=== PATIENT | female | born 1965 | race Caucasian/White ===

== ENCOUNTER → 2023-01-20 10:46 | Outpatient (BNVA) | payer BC, SELFPAY | PROVIDERS: PCP Nurse Practitioner Family; Visit Provider Nurse Practitioner Family | DX: Z13.89 Encounter for screening for other disorder (principal) ==

== ENCOUNTER 2023-03-19 09:19 | Outpatient (REF) | payer OTHER, SELFPAY ==
--- NOTE | 2023-03-19 09:30 | EMG_ITS ---
Please see scanned EMG / Nerve Conduction Report. MTDD
== END 2023-03-19 09:20 | disposition home or self-care (01) ==
LOC: HO.NEURO 09:19
PROVIDERS: PCP Nurse Practitioner Family; Visit Provider Nurse Practitioner Family
DX: R20.0 Anesthesia of skin (principal); R20.2 Paresthesia of skin
CPT/HCPCS: 95885; 95913

== ENCOUNTER 2024-07-17 13:48 | Emergency (ER) | payer OTHER, SELFPAY ==
--- NOTE | ~2024-07-17 | XR_ITS ---
EXAMINATION: CHEST 2 VIEWS CLINICAL INFORMATION: chest pain. COMPARISON: No recent pertinent prior studies are available for comparison. TECHNIQUE: PA and lateral views of the chest obtained. FINDINGS: The lungs are well expanded. No focal infiltrate, effusion, edema, or pneumothorax. Cardiac and mediastinal silhouettes are within normal limits for technique. No acute bony abnormality seen with mild degenerative changes in the spine XR/XR chest 2V IMPRESSION: No evidence of acute disease. Electronically signed by: Tomasz Stern MD 07/17/2024 04:28 PM EDT
--- NOTE | 2024-07-17 13:51 | ECG_ITS ---
Test Reason : cp Blood Pressure : / mmHG Vent. Rate : 091 BPM Atrial Rate : 091 BPM P-R Int : 140 ms QRS Dur : 078 ms QT Int : 342 ms P-R-T Axes : 042 003 013 degrees QTc Int : 420 ms Normal sinus rhythm Possible Left atrial enlargement Borderline ECG No previous ECGs available Referred By: Anuja Lindsey Electronically Signed By:NANY BREWER
[2024-07-17 14:17] VITALS: BP 145/92; PULSE 83; RESP 16; TEMP 36.4; O2SAT 97; BMI 27.8
--- NOTE | 2024-07-17 14:22 | ED_ITS ---
HPI - Chest Pain General Chief Complaint: Chest Pain Stated Complaint: CP Time Seen by Provider: 07/17/24 18:32 Source: patient Mode of arrival: ambulatory Limitations: no limitations History of Present Illness ED Provider: Dr. Nikky Velazquez HPI narrative: Patient comes to the emergency room complaining of fatigue and general malaise for about 6 weeks. Patient states that she has been repeatedly tested for COVID, always negative. Patient states that occasionally she feels some palpitations in the chest with some weird sensation that is self-resolved. Patient denies any syncopal episodes, no chest pain other than a discomfort sensation that comes along with the palpitations Related Data Home Medications ?Medication ?Instructions ?Recorded ?Confirmed betamethasone dipropionate 0.05 % 1 appl topical BID PRN 12/24/22 topical cream cholecalciferol (vitamin D3) 25 25 mcg PO DAILY 12/24/22 mcg (1,000 unit) capsule meloxicam 15 mg tablet 15 mg PO DAILY 12/24/22 thyroid (pork) 60 mg tablet 60 mg PO DAILY 12/24/22 Allergies Allergy/AdvReac Type Severity Reaction Status Date / Time Sulfa Allergy Unknown rash Uncoded 07/17/24 14:21 Review of Systems 2 Review of Systems: Constitutional : No Weight loss, No Fever, No Chills, No Night Sweats, complaining of chronic fatigue and generalized malaise for 6 weeks ENT/Mouth : No Hearing loss, No Ear Pain, No Nasal Congestion, No Sinus Pain, No Hoarseness, No sore throat, No Rhinorrhea, No Swallowing Difficulty Eyes: No Eye Pain, No Swelling, No Redness, No Foreign Body, No Discharge, No Vision Changes Cardiovascular : No Chest Pain, No SOB, No Dyspnea on Exertion, No Orthopnea, No Edema, complaining of intermittent Palpitations Respiratory : No Cough, No Sputum, No Wheezing, No Smoke Exposure, No Dyspnea Gastrointestinal : No Nausea, No Vomiting, No Diarrhea, No Constipation, No abdominal Pain, No Hematochezia, No Melena Genitourinary : no irregular bleeding, No Dysuria, No Urinary Frequency, No Hematuria, No Urinary Incontinence, No Urgency, No Flank Pain, No Urinary Flow Changes, No Hesitancy Musculoskeletal : No joint pain, No Myalgias, No Joint Swelling Skin : No Skin Lesions, No rash Neuro : No Weakness, No Numbness, No Paresthesias, No Loss of Consciousness, No Dizziness, No Headache Psych : No Anxiety/Panic, No Depression, No SI/HI/AH/VH, No Social Issues, Heme/Lymph: No Bruising, No Bleeding,No Lymphadenopathy Endocrine : No Polyuria, No Polydipsia, No Temperature Intolerance [facility] Past Medical History Medical History Lyme disease Polyarthralgia Hyperthyroidism Graves disease Fibromyalgia Depression with anxiety Surgical History Hx of section Social History Social History Household Members: Spouse and Children Alcohol intake: never Patient Tobacco Use Status: Never used Tobacco Smoked in Last 30 Days: No Use of substances other than those prescribed or required for medical reasons: No Advance Directives: No Current occupational status: unemployed Physical Exam 2 Vital Signs: Vital Signs: Last Vital Signs Temp 97.6 F 07/17/24 18:13 Pulse 68 07/17/24 18:03 Resp 18 07/17/24 18:03 BP 153/104 H 07/17/24 18:03 Pulse Ox 98 07/17/24 18:03 O2 Del Method Room Air 07/17/24 14:17 BMI result Body Mass Index 27.8 Const: Other: Appearance: Alert. Oriented X3. No acute distress. Eyes: Pupils equal, round and reactive to light. ENT: Pharynx normal. Neck: Normal inspection. Neck supple. No lymph nodes noted. No crepitus CVS: Normal heart rate and rhythm. Pulses normal. Normal S1 and S2 Respiratory: No respiratory distress. Breath sounds normal. No Wheezing. No rales Abdomen: Soft and nontender. No rigidity. No distention. Skin: Skin warm and dry. Normal skin color. Normal skin turgor. Extremities: No lower extremity edema. No Lacerations. No Rash Neuro: Oriented X 3. No motor deficit. No sensory deficit. Moving all extremities. No slurred speech. CN 2 through 12 grossly intact Psych: calm, cooperative, normal affect Course Course Course Narrative: RME performed by Anuja Lindsey PA-C. Patient is a 59 year old assigned female at presenting to the emergency department with feeling generally unwell. Patient states over the last 6 weeks she has felt generally unwell with fatigue and chest pain. Detailed physical exam and review of systems are deferred to the wood machine carver. EKG, labs, imaging, and swabs ordered. Patient placed back in the waiting room pending room availability and results. Medical Decision Making Medical Decision Making [facility] Narrative: My interpretation of EKG: Normal sinus rhythm, heart rate 91, no ST segment depression or elevation, no T-wave inversion, QTC 420 -as patient has been in the monitor, it was noted that patient has clusters of PVCs -my interpretation of labs: Normal hematology and chemistry, negative troponin, urinalysis negative. COVID negative -my interpretation of chest x-ray, no obvious abnormality. -patient has had generalized malaise for several weeks. -patient does have history of Lyme disease. I discussed with the patient that it is worse to test her for tick-borne diseases again. Patient agrees with plan. -also, it was noted on the patient's monitor that she has clusters of PVCs. I discussed the patient with Dr. Vazquez. Patient can be discharged and will follow up with him in his office for a Holter monitor evaluation -also, a TSH with free T4 has been added to patient's labs. Differential Diagnosis Differential Diagnoses: The differential diagnosis associated with the presentation includes (Depression, hyper/hypothyroid, tick-borne diseases, viral illness) Admission/Observation Consideration of admission/observation: Escalation of care including admission/observation considered (Given patient's symptoms, EKG findings, observation considered) Consult Healthcare Provider Management of the patient was discussed with: Salesperson [employer] Lab Data [facility] Lab Attestation statement: I reviewed the patient's lab results. 07/17/24 14:43 07/17/24 14:43 Labs: Lab Results 07/17/24 Range/Units 14:43 WBC 7.3 (4.8-10.8) X10*3/uL RBC 4.90 (4.20-5.50) X10*6/uL Hgb 14.3 (12.0-16.0) g/dl Hct 41.5 (37.0-47.0) % MCV 84.7 (80.0-98.0) fL MCH 29.2 (27.0-33.0) pg MCHC 34.5 (31.0-35.0) g/dl RDW 13.3 (11.0-16.0) % Plt Count 299 (160-400) X10*3/uL MPV 9.1 L (9.4-12.3) fL Immature Gran % (Auto) 0.4 (0.0-0.4) % Neut % (Auto) 56.7 (45-73) % Lymph % (Auto) 32.1 (20-40) % [place] % (Auto) 7.5 (2-11) % Eos % (Auto) 2.5 (0-4) % Baso % (Auto) 0.8 (0-2) % Lymph # (Auto) 2.4 (1.2-4.9) X10*3/uL [place] # (Auto) 0.6 (0.1-1.2) X10*3/uL Eos # (Auto) 0.2 (0.0-0.4) X10*3/uL Baso # (Auto) 0.1 (0.0-0.2) X10*3/uL Abs Immat Gran (auto) 0.03 (0.00-0.03) X10*3/uL Absolute Neuts (auto) 4.1 (2.0-8.3) x10*3/uL Absolute Nucleated RBC 0.000 (0.0-0.012) X10*3/uL Nucleated RBC % (auto) 0.0 (0.0-0.2) /100WBC Sodium 141 (135-145) mmol/L Potassium 4.2 (3.3-5.1) mmol/L Chloride 107 (96-108) mmol/L Carbon Dioxide 25 (22-29) mmol/L Anion Gap 13 (12-20) BUN 12 (9-16) mg/dL Creatinine 0.93 (0.5-1.4) mg/dL Estim Creat Clear Calc 80.3 Estimated GFR > 60 Random Glucose 121 H (60-115) mg/dL Calcium 9.8 (8.4-10.2) mg/dL Magnesium 2.0 (1.6-2.6) mg/dL Total Bilirubin 0.4 (0.0-1.0) mg/dL AST 14 (5-31) U/L ALT 8 (0-31) U/L Alkaline Phosphatase 72 (39-117) U/L Troponin I High Sens < 2.7 (<3.5-17.0) ng/L Total Protein 7.7 (6.5-8.0) g/dL Albumin 4.2 (3.5-5.0) g/dL Urine Color Yellow Urine Appearance Clear Urine pH 6.5 (5.0-9.0) Ur Specific [place]y 1.015 (1.005-1.025) Urine Protein Negative (Neg-Trace) mg/dL Urine Glucose (UA) Negative (Negative) mg/dL Urine Ketones Negative (Negative) mg/dL Urine Blood Negative (Negative) Urine Nitrite Negative (Negative) Ur Leukocyte Esterase Negative (Negative) Influenza Type A (PCR) NEGATIVE (Negative) Influenza Type B (PCR) NEGATIVE (Negative) RSV RNA Qual (PCR) NEGATIVE (Negative) SARS-CoV-2 RNA (RT-PCR) NEGATIVE (Negative) Independent Interpretation I performed an independent interpretation of an: EKG and Plain X-Ray Radiology Impression Discussion of test interpretation with radiology: I have reviewed the radiologist's reading. Radiologist Impression: The lungs are well expanded. No focal infiltrate, effusion, edema, or pneumothorax. Cardiac and mediastinal silhouettes are within normal limits for technique. No acute bony abnormality seen with mild degenerative changes in the spine XR/XR chest 2V IMPRESSION: No evidence of acute disease. Critical Care Time Critical Care Time Critical Care Time: Yes Total Critical Care Time: 40 Attestation: I have personally provided critical care time. Time includes review of lab data, radiology results, discussion with consultants, and monitoring for potential decompensation. Intervention performed as documented. Discharge Plan Discharge Clinical Impression: Malaise and fatigue, Symptomatic PVCs Patient Disposition: Home, Self-Care Instructions: Fatigue (ED), Heart Palpitations (ED) Additional Instructions: Please follow-up with your primary care physician tomorrow. If you have any worsening or new symptoms, please return to the emergency room or call 911 Prescriptions: No Action betamethasone dipropionate 0.05 % cream 1 appl topical BID PRN cholecalciferol (vitamin D3) 25 mcg (1,000 unit) capsule 25 mcg PO DAILY thyroid (pork) 60 mg tablet 60 mg PO DAILY meloxicam 15 mg tablet 15 mg PO DAILY Referrals: Anthony Vazquez MD [Physician] - 07/19/24 Print Language: Maltese
[2024-07-17 14:48] LABS: MANUAL DIFF FLAG NO
[2024-07-17 14:50] LABS: Appearance Urine Clear; Color Urine Yellow; Glucose Urine UA Negative (Negative); Leukocyte Esterase Urine Negative (Negative); Nitrite Urine Negative (Negative); PH 6.5 (5.0-9.0); Specific Gravity - Urine 1.015 (1.005-1.025); Urine Blood Negative (Negative); Urine Ketones Negative (Negative); Urine Protein Negative (Neg-Trace)
[2024-07-17 15:00] LABS: Basophils Absolute Auto 0.1 X10*3/uL (0.0-0.2); Basophils Percent Auto 0.8 % (0-2); Eosinophils Absolute Auto 0.2 X10*3/uL (0.0-0.4); Eosinophils Percent Auto 2.5 % (0-4); Hematocrit 41.5 % (37.0-47.0); Hemoglobin 14.3 g/dl (12.0-16.0); Imm Gran Abs Auto 0.03 X10*3/uL (0.00-0.03); Imm Gran Pct Auto 0.4 % (0.0-0.4); Lymphocytes Absolute Auto 2.4 X10*3/uL (1.2-4.9); Lymphocytes Percent Auto 32.1 % (20-40); Mean Corpuscular HGB Conc 34.5 g/dl (31.0-35.0); Mean Corpuscular Hemoglobin 29.2 pg (27.0-33.0); Mean Corpuscular Volume 84.7 fL (80.0-98.0); Mean Platelet Volume 9.1 fL (9.4-12.3); Monocytes Absolute Auto 0.6 X10*3/uL (0.1-1.2); Monocytes Percent Auto 7.5 % (2-11); Neutrophils Absolute Auto 4.1 x10*3/uL (2.0-8.3); Neutrophils Percent Auto 56.7 % (45-73); Platelet Count 299 X10*3/uL (160-400); Red Cell Distribution Width 13.3 % (11.0-16.0); White Blood Count 7.3 X10*3/uL (4.8-10.8)
[2024-07-17 15:08] LABS: Alanine Aminotransferase 8 U/L (0-31); Albumin Level 4.2 g/dL (3.5-5.0); Alkaline Phosphatase 72 U/L (39-117); Anion Gap 13 (12-20); Aspartate Amino Transferase 14 U/L (5-31); Bilirubin Total 0.4 mg/dL (0.0-1.0); Blood Urea Nitrogen 12 mg/dL (9-16); Calcium 9.8 mg/dL (8.4-10.2); Carbon Dioxide 25 mmol/L (22-29); Chloride 107 mmol/L (96-108); Creatinine Clr Calc Pharmacy 80.3; Estimated Glomerular Filt Rate > 60; Glucose Random 121 mg/dL (60-115); Potassium 4.2 mmol/L (3.3-5.1); Sodium 141 mmol/L (135-145); Total Protein 7.7 g/dL (6.5-8.0)
[2024-07-17 15:17] LABS: Troponin-I High Sensitivity < 2.7 ng/L (<3.5-17.0)
[2024-07-17 15:48] LABS: Influenza A PCR NEGATIVE (Negative); Influenza B PCR NEGATIVE (Negative); Resp Syncy Virus RNA Qual PCR NEGATIVE (Negative); SARS COV2 PCR INHOUSE NEGATIVE (Negative)
[2024-07-17 18:03] VITALS: BP 153/104; PULSE 68; RESP 18; O2SAT 98
--- NOTE | 2024-07-17 18:09 | MHC.EDTECH ---
pt brought to room , changed over into hospital attire.
[2024-07-17 18:13] VITALS: TEMP 36.4
[2024-07-17 19:22] VITALS: BP 134/90; PULSE 63; RESP 16; TEMP 36.9; O2SAT 96
[2024-07-17 19:40] LABS: TSH reflex Free T4 3.91 uIU/mL (0.32-4.0)
[2024-07-17 19:43] VITALS: BP 134/90; PULSE 63; RESP 16; TEMP 36.9; O2SAT 96
[2024-07-19 18:04] LABS: Lyme Abs Screen <0.90 index
[2024-07-19 18:19] LABS: A. Phagocytphilium DNA,RT-PCR NOT DETECTED (NOT DETECTED); Babesia Microti DNA, RT-PCR NOT DETECTED (NOT DETECTED); Borrelia Miyamotoi,DNA RT-PCR NOT DETECTED (NOT DETECTED); E.Chaffeensis DNA RT-PCR NOT DETECTED (NOT DETECTED); Lyme(Borrelia ssp)DNA RT-PCR NOT DETECTED (NOT DETECTED)
== END 2024-07-17 19:44 | disposition home or self-care (01) ==
PROVIDERS: Physician Assistant Medical; Emergency Provider Emergency Medicine; PCP Nurse Practitioner Family
DX: R53.81 Other malaise (principal); R53.83 Other fatigue; I49.3 Ventricular premature depolarization; Z03.818 Encounter for observation for suspected exposure to other biological agents ruled out; E05.90 Thyrotoxicosis, unspecified without thyrotoxic crisis or storm
CPT/HCPCS: 0241U; 36415; 71046; 80053; 81003; 83735; 84443; 84484; 85025; 86617; 86618; 87468; 87469; 87478; 87484; 87798; 93005; 99283; 99284

== ENCOUNTER 2024-07-29 13:41 | Outpatient (AMB) | payer OTHER, SELFPAY ==
[2024-07-29 14:06] VITALS: BP 122/62; PULSE 68; BMI 27.5
--- NOTE | 2024-07-29 14:06 | MHC.OFFVIS ---
Vital Signs 07/29/24 14:06 Height 5 ft 10 in Weight 191 lb 12.835 oz BMI 27.5 BP 122/62 Blood Pressure Location Lt brachial Position Sitting Pulse 68 Pulse Source Pulse Oximeter Intake Visit Reasons: ED Follow up/fatigue and general malaise Allergies Sulfa Allergy (Unknown, Uncoded 07/17/24 14:21) rash HPI Comments Details: 59-year-old female presents today for a new patient visit. She went to the emergency room on 07/17/2024 for increase in fatigue. She also has some chest pain above her left breast into her left arm and flutter have now completely resolved. She denies any current chest pain, shortness of breath, or orthopnea. She has a rare palpitation. She does report she is on about week 7 of a major headache lightheadedness and dizziness. She denies any cardiac history for herself. Her mother had AFib and her father had to myocardial infarctions 1 year apart. She does not smoke and has an occasional alcoholic beverage. PENDING SALE TO [facility] Medical History Chest pain PVCs (premature ventricular contractions) Lichen sclerosus Allergies Lyme disease Polyarthralgia Hyperthyroidism Graves disease Fibromyalgia Depression with anxiety Surgical History Hx of section Family History Mother Chronic a-fib Father Heart attack Social History Household Members: Spouse and Children Alcohol intake: current Alcohol intake frequency: holidays/special occasions only Patient Tobacco Use Status: Never used Tobacco Current occupational status: unemployed Review of Systems Const Denies weakness ENT Denies dizziness Card Denies chest pain, Denies chest pain with activity, Denies syncope, Denies rapid heart rate, Denies pedal edema, Denies edema, Denies leg edema, Denies lightheadedness, Denies palpitations, Denies dyspnea, Denies dyspnea on exertion and Denies orthopnea Resp Denies cough, Denies dyspnea and Denies dyspnea on exertion GI Denies hematochezia and Denies change in stool character Musc Denies abnormal gait, Denies muscle cramps, Denies muscle weakness, Denies numbness, Denies radiating pain into limb and Denies tingling Neuro Denies abnormal gait, Denies dizziness, Denies syncope, Denies numbness, Denies tingling and Denies weakness Endo Denies palpitations Physical Exam Vital Signs: Last Vital Signs Pulse 68 07/29/24 14:06 BP 122/62 07/29/24 14:06 BMI result Body Mass Index 27.5 Const General: healthy appearing and no acute distress Orientation/consciousness: patient oriented x3 HEENT Head: Yes normal to inspection Eyes General: appearance normal, both eyes and all related structures Neck Neck: Yes normal visual inspection Chest Chest palpation & inspection: normal inspection of the chest Resp Effort & Inspection: normal respiratory effort Auscultation: clear to auscultation bilaterally Cardio Jugular venous distension: no JVD Palpation: normal PMI Rate: regular rate Rhythm: regular rhythm Heart sounds: S1 normal heart sound present, S2 normal heart sound present, no click, no gallops, no murmurs and no rubs GI Inspection: Yes normal to inspection Palpation (GI): Soft to palpation Skin General skin exam: no rashes or lesions noted Neuro General: patient oriented x3 Extrem General: Yes normal to inspection Psych Appearance: grossly normal Assessment & Plan Assessment & Plan (1) PVCs (premature ventricular contractions): Code(s): I49.3 - Ventricular premature depolarization Category: Medical Plan: Patient (2) Chest pain: Code(s): R07.9 - Chest pain, unspecified Category: Medical Plan Patient with chest pains likely secondary to Rinvoq therapy. Improved then resolved once stopping therapy. Cluster of PVCs in the ED noted but no strip available. Will do stress test to ensure no ischemia due to episode of chest pains and to evaulate for exercise induced arrhythmias. Will do echocardiogram to assess for any structure changes. Holter to assess for arrythmias and burden on PVCs. Will follow-up after testing. ED care if needed. Orders: Orders CA echo transthoracic complete 07/29/24 I49.3 - Ventricular premature depolarization, R07.9 - Chest pain, unspecified CA stress test 07/29/24 R07.9 - Chest pain, unspecified ECG 3 day holter monitor 07/29/24 I49.3 - Ventricular premature depolarization, R07.9 - Chest pain, unspecified Coding Level of Care Code New Pt Level 4 (89237) Diagnoses PVCs (premature ventricular contractions) I49.3 Chest pain R07.9
== END 2024-07-29 14:40 | disposition home or self-care (01) ==
PROVIDERS: PCP Nurse Practitioner Family; Visit Provider Nurse Practitioner
DX: I49.3 Ventricular premature depolarization (principal); R07.9 Chest pain, unspecified
CPT/HCPCS: 99204

== ENCOUNTER → 2024-07-29 13:41 | Outpatient (BNVA) | payer OTHER, SELFPAY | PROVIDERS: PCP Nurse Practitioner Family; Visit Provider Nurse Practitioner | DX: I49.3 Ventricular premature depolarization (principal); R07.9 Chest pain, unspecified ==

== ENCOUNTER → 2024-08-31 08:47 | Outpatient (REF) | payer OTHER, SELFPAY ==
--- NOTE | 2024-08-31 08:52 | HM_ITS ---
* Total monitoring time 3 days. * Underlying rhythm is sinus with an average rate of 72/Min. * Rare supraventricular ectopy. * Rare ventricular ectopy. * No significant pauses or high-grade AV blocks. * Fluttering in patient diary associated with PVC. MTDD
--- NOTE | 2024-08-31 08:52 | CA_ITS ---
Acquisition Time: 2024-08-31 09:49:42 Total Exercise Time: 00:10:00 Test Indications: CHEST PAIN, PVCS Medications: Protocol: CHRISTIANE Max HR: 137 BPM 84% of Pred: 163 BPM Max BP: 172/098 mmHG Max Work Load: 8.5 METS Exercise stress test with exercise 10 min of Christiane protocol (stage 3 speed reduced to 2.8 MPH and held) achieving 84% MPHR, with report of 2/10 left to mid chest ache, with isolated PVCs, with normotensive response to exercise, without EKG changes meeting criteria for ischemia. In recovery her chest discomfort improved to 1/10. Test reviewed with Dr Jean Referred By: Mica De Guzman Overread By: JOSEFINA SANDOVAL
--- NOTE | 2024-08-31 08:52 | CA_ITS ---
Transthoracic Echocardiogram Patient (Last, First, Middle): Tiffany Guidry Ann Gender: Female Date of : 1965 Age: 59 Procedure Date: 08/31/2024 Procedure Type: Transthoracic Echocardiogram Location: OP Height: 177.8 cm Weight: 86.18 kg BSA: 2.04 m2 Heart Rate: bpm BP: 133 / 84 mmHg Strategy Intern: LUZ Referring MD: Mica De Guzman NP Symptoms: I49.3 - Ventricular premature depolarization Study Quality: Adequate ECG Rhythm: Sinus Conclusions: - The left ventricular systolic function is normal. The calculated ejection fraction is 58% by biplane method. - No obvious valvular pathology seen on this study. Findings Left Ventricle Normal left ventricular cavity size. The left ventricular systolic function is normal. The calculated ejection fraction is 58% by biplane method. There is no evidence of regional wall motion abnormalities. Diastolic function is normal for age. There is mild septal asymmetric hypertrophy. Right Ventricle Normal right ventricular cavity size and systolic function. Atria Both atria are normal in size. Aortic Valve There is a normal trileaflet aortic valve. There is no aortic valve stenosis. There is no aortic valve regurgitation. Mitral Valve The mitral valve appears normal. There is trace mitral valve regurgitation. There is no mitral valve stenosis. Pulmonic Valve The pulmonic valve is likely normal. Tricuspid Valve There is trace tricuspid valve regurgitation. There is no evidence of pulmonary hypertension. Great Vessels The asc aorta and aortic arch are normal in size. Venous The inferior vena cava is normal in size and collapses greater than 50% with inspiration. Pericardium/Pleural There is no evidence of pericardial effusion. Prior Study Comparison No prior study available for comparison. Recommendations, Care & Conclusions No obvious valvular pathology seen on this study. Measurements 2D Linear Measurements IVSd: 1.04 0.6-0.9/0.6-1.0 cm LVIDd: 4.16 3.9-5.3/4.2-5.9 cm LVIDd Index: 2.04 2.4-3.2/2.2-3.1 cm/m2 LVIDs: 2.50 2.0-3.6 cm LVPWd: 0.75 0.7-1.1 cm LA Diam: 3.60 2.7-3.8/3.0-4.0 cm LAIDs Index: 1.76 1.5-2.3 cm/m2 LV Mass: 144.09 67-162/88-224 g LV Mass Index: 70.63 43-95/49-115 g/m2 LVOT Diam: 2.00 3.0+(-)1.3 cm 2D Systolic Function EF 4C: 57.60 >55% EF 2C: 59.20 >55% EF BiP: 57.70 >55% Mitral Valve MV Pk E: 0.78 MV PK A: 0.68 MV Decel Time: 303.00 E/A: 1.20 E'Lateral: 12.90 E'Medial: 7.72 E/E' Med: 10.20 E/E' Lat: 6.10 PHT: 89.00 MVA PHT: 2.47 Decel Panola: 2.58 Aortic Valve AoV Pk Anthony: 1.53 AoV Mn Anthony: 1.05 AoV VTI: 0.33 AoV Pk Grad: 9.00 Aov Mn Grad: 5.00 CASEY Cont.VTI: 2.42 LVOT LVOT Pk Anthony: 1.17 LVOT Mn Anthony: 0.71 LVOT VTI: 0.25 LVOT Pk Grad: 5.00 LVOT Mn Grad: 2.00 LVOT Diam: 2.00 LVOT Area: 3.14 Diastolic Function MV Pk E: 0.78 MV Pk A: 0.68 E/A: 1.20 E'Medial: 7.72 E/E' Med: 10.20 E' Laterial: 12.90 E/E' Lat: 6.10 Right Ventricle TAPSE (mm): 202.00 TVS' Anthony: 14.50 Tricuspid Valve TR Pk Anthony: 2.08 TR Pk Grad: 17.00 RA Press: 3.00 RVSP: 20.00 Great Vessels Aorta Sinus of Valsalva: 3.31 2.0-3.[address] Ridge: 2.44 1.7-3.4 cm Ao Asc: 3.80 2.1-3.4 cm Ao Arch: 3.00 Updated in Other Vendor System with Status of Final Anthony Vazquez MD electronically signed on 08/31/2024 2:21:03 PM with status of Final
== END ==
LOC: HO.CARD 08:47
PROVIDERS: PCP Nurse Practitioner Family; Visit Provider Nurse Practitioner
DX: R07.9 Chest pain, unspecified (principal); I49.3 Ventricular premature depolarization
CPT/HCPCS: 93017; 93242; 93306

== ENCOUNTER → 2024-08-31 08:47 | Outpatient (REF) | payer OTHER, SELFPAY | LOC: HO.CARD 08:47 | PROVIDERS: PCP Nurse Practitioner Family; Visit Provider Nurse Practitioner | DX: Z13.89 Encounter for screening for other disorder (principal) ==

== ENCOUNTER → 2024-08-31 08:52 | Outpatient (BNV) | payer OTHER, SELFPAY | PROVIDERS: PCP Nurse Practitioner Family; Visit Provider Nurse Practitioner Family | DX: I47.10 Supraventricular tachycardia, unspecified (principal); I49.3 Ventricular premature depolarization | CPT/HCPCS: 93016; 93018; 93244; 93320; 93325; 93350 ==

== ENCOUNTER 2024-10-04 13:55 | Outpatient (AMB) | payer OTHER, SELFPAY ==
[2024-10-04 14:20] VITALS: BP 120/70; PULSE 74; BMI 27.8
--- NOTE | 2024-10-04 14:20 | A.OFFVIS_ITS ---
Vital Signs 10/04/24 14:20 Height 5 ft 10 in Weight 194 lb 0.108 oz BMI 27.8 BP 120/70 Blood Pressure Location Lt brachial Position Sitting Pulse 74 Pulse Source Pulse Oximeter Intake Visit Reasons: f/up testing-ett/holter/echo Allergies Sulfa Allergy (Unknown, Uncoded 07/17/24 14:21) rash Medication List - Last Reconciled 10/04/24 by Liz Ambrosio NP-C cholecalciferol (vitamin D3) 25 mcg PO DAILY lamotrigine 100 mg PO TID thyroid (pork) ([place] Thyroid) 60 mg PO DAILY HPI HPI f/up testing-ett/holter/echo: Details: Tiffany Horton is a 59-year-old female with past medical history of fibromyalgia, polyarthralgia who was recently evaluated for chest discomfort. She recently underwent a echocardiogram, exercise stress test and Holter monitor and now presents for follow-up. Today she reports she has been doing very well since her last visit. She had been on Rinvoq which she believes was causing her chest discomfort. Since stopping that medication her symptom has fully resolved. No exertional chest discomfort. No shortness of breath, PND, orthopnea or edema. No palpitations, lightheadedness, presyncope, syncope. She admits to being mostly sedentary and limited by her muscle and joint pains. She tells me her father had history of fatal [place] which causes her concern for her own health. [facility] Medical History Chest pain PVCs (premature ventricular contractions) Lichen sclerosus Allergies Lyme disease Polyarthralgia Hyperthyroidism Graves disease Fibromyalgia Depression with anxiety Surgical History Hx of section Family History Mother Chronic a-fib Father Heart attack Social History Household Members: Spouse and Children Alcohol intake: current Alcohol intake frequency: holidays/special occasions only Patient Tobacco Use Status: Never used Tobacco Current occupational status: unemployed Review of Systems Const All systems reviewed & are unremarkable except as noted in HPI and below Denies weakness ENT Denies dizziness Card Denies chest pain, Denies chest pain with activity, Denies syncope, Denies rapid heart rate, Denies pedal edema, Denies edema, Denies leg edema, Denies lightheadedness, Denies palpitations, Denies dyspnea, Denies dyspnea on exertion and Denies orthopnea Resp Denies cough, Denies dyspnea and Denies dyspnea on exertion GI Denies hematochezia and Denies change in stool character Musc Denies abnormal gait, Denies muscle cramps, Denies muscle weakness, Denies numbness, Denies radiating pain into limb and Denies tingling Neuro Denies abnormal gait, Denies dizziness, Denies syncope, Denies numbness, Denies tingling and Denies weakness Endo Denies palpitations Physical Exam Vital Signs: Last Vital Signs Pulse 74 10/04/24 14:20 BP 120/70 10/04/24 14:20 BMI result Body Mass Index 27.8 Const General: cooperative, healthy appearing, comfortable and no acute distress Orientation/consciousness: patient oriented x3 Neck Neck: Yes normal visual inspection and Yes no JVD Resp Effort & Inspection: normal respiratory effort Auscultation: clear to auscultation bilaterally, no crackles, no rales, no rhonchi and no wheezes Cardio Rate: regular rate Rhythm: regular rhythm Heart sounds: S1 normal heart sound present, S2 normal heart sound present, no murmurs and no rubs Neuro General: patient oriented x3 Extrem General: Yes normal to inspection, No no pedal edema and No calf tenderness Psych Appearance: grossly normal Mental Status: mental status grossly normal Speech and movement: Normal speech and movement present Assessment & Plan Assessment & Plan (1) Chest pain: Code(s): R07.9 - Chest pain, unspecified Category: Medical Plan: Prior report of nonexertional chest discomfort which has fully resolved after stopping Rinvoq. She tells me it felt like a muscle soreness. She has a history of polyarthralgia which may have contributed. EKG done 07/17/2024 showed normal sinus rhythm, possible left atrial enlargement, rate 91. An echocardiogram done 08/31/2024 showed EF 58%, no valve abnormalities and no regional wall motion abnormalities. An exercise stress test done on 08/31/2024 showed exercise 10 minutes with atypical chest discomfort, no EKG changes of ischemia. A Holter monitor was done on 08/31/2024 for 3 days showing sinus rhythm with average heart rate 72, rare SVE and VE. Test results reviewed with her in detail. She expresses concern over her cardiac health since father had fatal AK. cardiac risk factor modification discussed. Signs and symptoms of tr ue angina reviewed. Will check a coronary calcium score and plan to call her with results. Follow-up to our office to be determined based on coronary calcium score. (2) Polyarthralgia: Code(s): M25.50 - Pain in unspecified joint Category: Medical Plan: As above (3) Family history of coronary arteriosclerosis: Code(s): Z82.49 - Family history of ischemic heart disease and other diseases of the circulatory system Category: Medical Plan: As above Plan Time spent on chart review, documentation, interviewed assessment Orders: Orders CT Coronary Calcium Score Today M25.50 - Pain in unspecified joint, R07.9 - Chest pain, unspecified, Z82.49 - Family history of ischemic heart disease and other diseases of the circulatory system Coding Level of Care Code Est Pt Level 4 (32475) Complex EM visit Add On G2211 Diagnoses Chest pain R07.9 Polyarthralgia M25.50 Family history of coronary arteriosclerosis Z82.49 Time Spent (min) 30
== END 2024-10-04 14:56 | disposition home or self-care (01) ==
PROVIDERS: PCP Nurse Practitioner Family; Visit Provider Nurse Practitioner Family
DX: R07.9 Chest pain, unspecified (principal); M25.50 Pain in unspecified joint; Z82.49 Family history of ischemic heart disease and other diseases of the circulatory system
CPT/HCPCS: 99214

== ENCOUNTER 2025-04-16 06:47 | Emergency (ER) | payer OTHER, SELFPAY ==
[2025-04-16] VITALS (7 sets, daily range): BP systolic 119–144; BP diastolic 74–97; PULSE 68–85; RESP 13–16; TEMP 36.4–37.1; O2SAT 98–99; BMI 24.2
--- NOTE | ~2025-04-16 | CT_ITS ---
CLINICAL HISTORY: LLQ pain, periumbillican pain CT abdomen and pelvis with contrast Comparison: None Findings: No consolidation or effusion. There is mild prominence of the central renal collecting systems bilaterally without jayesh hydronephrosis. Small nonobstructing calculi are seen in the lower pole of the left kidney. The rest of the solid organs are normal. The gallbladder is normal. No bowel obstruction, pneumoperitoneum, or pneumatosis. No evidence of diverticulitis or appendicitis. There is evidence of left pelvic congestion syndrome. The urinary bladder is normal. The bones are intact. IMPRESSION: 1. Left pelvic congestion syndrome. 2. Left-sided nephrolithiasis without obstructive uropathy. This document has been electronically signed by: Vimal Pham MD on 04/16/2025 11:43:18
--- NOTE | 2025-04-16 07:48 | PC.NURSE ---
Patient a&o X 3. Patient presents to Ed c/o Abdomen pain rated 7/10 which started on Friday. Accompanied with non bloody N/V/D. Vomiting stopped on Friday but the nausea and diarrhea has been persistent. Poor intake. Denies fever/ chills. Denies injury, Denies recent surgery. +bowel sounds abdomen soft and tender on the lower quadrants. Plan of care on going
[2025-04-16 08:04] LABS: MANUAL DIFF FLAG NO
--- NOTE | 2025-04-16 08:12 | ED_ITS ---
HPI - Abdominal Pain General Chief Complaint: Abdominal Pain Stated Complaint: Severe abd pain Time Seen by Provider: 04/16/25 08:12 Source: patient Mode of arrival: ambulatory Limitations: no limitations History of Present Illness ED Provider: David Anna PA-C HPI narrative: 59-year-old female with medical history of Lyme disease, hyperthyroidism, Graves disease, fibromyalgia, depression, anxiety presents to the emergency department today due to 4 days of abdominal pain and diarrhea. Patient states she woke up Thursday 04/12 around 4 in the morning with abdominal pain, nausea and vomiting. She states the pain was mainly around her belly button and then started traveling up to her gap epigastric felt some burning into the chest. She also endorses lumbar back pain at this time. Later on in the morning she developed watery diarrhea diarrhea. She took some Pepto-Bismol without relief and then began taking loperamide. She states she now has not had a bowel movement since Friday, but is passing gas. She states she is still experiencing abdominal pain with nausea but no vomiting since Friday morning. She states her pain is primarily in the periumbilical region she has been eating bland food and is able to tolerate without vomiting but food makes the abdominal pain worse. She denies any recent sick contacts, travel, antibiotic use. She denies shortness of breath, headache, lightheadedness, dizziness, black or tarry stool. MD elicited complaint: abdominal pain Onset (ago): day(s) (4) Pain Consistency: constant Location: epigastric and periumbilical Severity: moderate Quality: cramping and sharp Radiation: epigastric and chest Exacerbating factors: eating Relieving factors: nothing Associated symptoms: nausea and diarrhea Treatments prior to arrival: other (Loperamide) Related Data Home Medications ?Medication ?Instructions ?Recorded ?Confirmed cholecalciferol (vitamin D3) 25 25 mcg PO DAILY 12/24/22 10/04/24 mcg (1,000 unit) capsule lamotrigine 100 mg tablet 100 mg PO TID 07/29/24 10/04/24 thyroid (pork) 90 mg tablet 60 mg PO DAILY 10/04/24 10/04/24 ([place] Thyroid) Allergies Allergy/AdvReac Type Severity Reaction Status Date / Time sulfamethoxazole Allergy Rash Verified 04/16/25 06:49 [From Bactrim] trimethoprim [From Bactrim] Allergy Rash Verified 04/16/25 06:49 Sulfa Allergy Unknown rash Uncoded 07/17/24 14:21 Review of Systems Review of Systems CONST: Negative for fever, body aches and chills. HENT: Negative for neck pain/stiffness, headache, congestion, sore throat, swelling. EYES: Negative for discharge/pain or vision changes. RESP: Negative for cough/hemoptysis and shortness of breath. CV: Negative chest pain, difficulty breathing, palpitations. ABD: POS pain, nausea, vomiting, diarrhea. : Negative increase frequency, dysuria, blood in urine or stool. MUSC: Negative for muscle aches, edema. SKIN: Negative rash, lesions/sores. NEURO: Negative headache, dizziness, weakness. [facility] Past Medical History Attestation statement: The following information was validated with the patient. Source: old records reviewed and obtained from family Medical History Chest pain PVCs (premature ventricular contractions) Lichen sclerosus Allergies Lyme disease Polyarthralgia Hyperthyroidism Graves disease Fibromyalgia Depression with anxiety Surgical History Hx of section Family History Family History Mother Chronic a-fib Father Heart attack Social History Social History Household Members: Spouse and Children Alcohol intake: current Alcohol intake frequency: holidays/special occasions only Patient Tobacco Use Status: Never used Tobacco Current occupational status: unemployed Physical Exam ED Vital Signs: Vital Signs - 24 hr 04/16/25 06:49 04/16/25 07:40 04/16/25 07:45 Temperature 97.5 F 97.7 F 97.7 F Pulse Rate 85 84 84 Respiratory Rate 16 14 14 Blood Pressure 144/97 H 131/91 H 131/91 H Pulse Oximetry 98 Oxygen Delivery Method Room Air Room Air Room Air 04/16/25 08:23 04/16/25 10:00 04/16/25 12:00 Temperature 98.7 F 97.9 F 98.0 F Pulse Rate 80 68 70 Respiratory Rate 13 14 15 Blood Pressure 131/74 122/85 119/78 Pulse Oximetry 98 99 99 Oxygen Delivery Method Room Air Room Air Room Air 04/16/25 13:09 Temperature 98.0 F Pulse Rate 70 Respiratory Rate 15 Blood Pressure 119/78 Pulse Oximetry 99 Oxygen Delivery Method Room Air BMI result Body Mass Index 24.2 GENERAL APPEARANCE: ?AxOx4, generally well-appearing, no acute distress. HEENT: ?[place], AT. Dry oral membranes. EOMI, clear conjunctiva, oropharynx clear. NECK: ?Supple without lymphadenopathy.? No stiffness or restricted ROM. HEART:? Normal rate and regular rhythm, normal S1/S1, no m/r/g LUNGS:? CTAB, moving air well. No crackles or wheezes are heard. ABDOMEN: ?Soft, nondistended with good bowel sounds heard in all 4 quadrants. TTP LLQ, and periumbilical area. No rigidity, no guarding, no rebound tenderness, negative Johnston's sign. BACK: B/L CVAT, no obvious deformity. No tenderness over lumbar or thoracic paraspinal muscles. EXTREMITIES: ?Without cyanosis, clubbing or edema. NEUROLOGICAL: ?Grossly nonfocal. Alert and oriented, moving all 4 extremities. Observed to ambulate with normal gait. Skin: ?Warm and dry without any rash. Medical Decision Making Medical Decision Making MDM Narrative: 59-year-old female with medical history of Lyme disease, hyperthyroidism, Graves disease, fibromyalgia, depression, anxiety presents to the emergency department today due to 4 days of abdominal pain and diarrhea. Patient states she woke up Thursday 04/12 around 4 in the morning with abdominal pain, nausea and vomiting. She states the pain was mainly around her belly button and then started traveling up to her gap epigastric felt some burning into the chest. She also endorses lumbar back pain at this time. Later on in the morning she developed watery diarrhea diarrhea. She took some Pepto-Bismol without relief and then began taking loperamide. She states she now has not had a bowel movement since Friday, but is passing gas. She states she is still experiencing abdominal pain with nausea but no vomiting since Friday morning. She states her pain is primarily in the periumbilical region she has been eating bland food and is able to tolerate without vomiting but food makes the abdominal pain worse. VSS, in no acute distress, nontoxic appearing. On physical exam patient was exquisitely tender in the LLQ, with mild tenderness in the periumbilical region, appropriate bowel sounds heard in all 4 quadrants. No rigidity, no rebound tenderness- less likley appendicitis, negative Johnston's sign. Bilateral CVA tenderness- possible nephrolithiasis. EKG without ST elevations/depressions initial troponin WNL-less likely ACS. IV fluids started patient medicated with IV 4 mg Zofran, 20 mg famotidine, viscous lidocaine, and 30 mL Maalox. Patient states she is still experiencing abdominal pain after administration of medication. We will obtain CT abdomen and pelvis with contrast for further evaluation. Labs without leukocytosis, unremarkable. UA reveals trace urine blood, otherwise unremarkable. Course 12:01- CT abdomen/pelvis reveals L pelvic congestion syndrome, and L sided nephrolithaisis without obstruction. Patient states she did not mention she is currently on Tirazepatide, started 3 months ago and is wondering if this medication could be causing her symptoms. I educated the patient on the side effects of GLP-1 medications and that this could be causing abdominal pain and diarrhea. I advised patient to stop taking loperamide at this time and to keep up with oral hydration. Counseled patient on urgent follow up with OBGYN to manage pelvic congestion syndrome, and PCP to manage Tirzepatide dosing and finding of non obstructive nephrolithiasis. Strict return precautions discussed. Patient feels well to discharge home for self care. Differential Diagnosis Differential Diagnoses: The differential diagnosis associated with the presentation includes ACS Nephrolithiasis Gastritis Diverticular disease Appendicitis Admission/Observation Consideration of admission/observation: Escalation of care including admission/observation considered Lab Data MDM Lab Attestation statement: I reviewed the patient's lab results. 04/16/25 08:00 04/16/25 08:00 Labs: Lab Results 04/16/25 04/16/25 Range/Units 08:00 08:30 WBC 5.7 (4.8-10.8) X10*3/uL RBC 4.56 (4.20-5.50) X10*6/uL Hgb 13.2 (12.0-16.0) g/dl Hct 38.0 (37.0-47.0) % MCV 83.3 (80.0-98.0) fL MCH 28.9 (27.0-33.0) pg MCHC 34.7 (31.0-35.0) g/dl RDW 13.7 (11.0-16.0) % Plt Count 263 (160-400) X10*3/uL MPV 9.4 (9.4-12.3) fL Immature Gran % (Auto) 0.2 (0.0-0.4) % Neut % (Auto) 58.8 (45-73) % Lymph % (Auto) 27.2 (20-40) % [place] % (Auto) 8.8 (2-11) % Eos % (Auto) 3.9 (0-4) % Baso % (Auto) 1.1 (0-2) % Lymph # (Auto) 1.6 (1.2-4.9) X10*3/uL [place] # (Auto) 0.5 (0.1-1.2) X10*3/uL Eos # (Auto) 0.2 (0.0-0.4) X10*3/uL Baso # (Auto) 0.1 (0.0-0.2) X10*3/uL Abs Immat Gran (auto) 0.01 (0.00-0.03) X10*3/uL Absolute Neuts (auto) 3.4 (2.0-8.3) x10*3/uL Absolute Nucleated RBC 0.000 (0.0-0.012) X10*3/uL Nucleated RBC % (auto) 0.0 (0.0-0.2) /100WBC Sodium 143 (135-145) mmol/L Potassium 4.3 (3.3-5.1) mmol/L Chloride 109 H (96-108) mmol/L Carbon Dioxide 29 (22-29) mmol/L Anion Gap 9 L (12-20) BUN 13 (9-16) mg/dL Creatinine 0.85 (0.5-1.4) mg/dL Estim Creat Clear Calc 79.0 Estimated GFR > 60 Random Glucose 101 (60-115) mg/dL Calcium 9.5 (8.4-10.2) mg/dL Magnesium 2.0 (1.6-2.6) mg/dL Total Bilirubin 0.5 (0.0-1.0) mg/dL Direct Bilirubin 0.2 (0.0-0.5) mg/dL AST 19 (5-31) U/L ALT 15 (0-31) U/L Alkaline Phosphatase 59 (39-117) U/L Troponin I High Sens < 2.7 (<3.5-17.0) ng/L Total Protein 7.2 (6.5-8.0) g/dL Albumin 4.3 (3.5-5.0) g/dL Lipase 25 (8-78) U/L TSH 3.94 (0.32-4.0) uIU/mL Urine Color Dark Yellow Urine Appearance Clear Urine pH 6.5 (5.0-9.0) Ur Specific [place] 1.020 (1.005-1.025) Urine Protein Negative (Neg-Trace) mg/dL Urine Glucose (UA) Negative (Negative) mg/dL Urine Ketones Negative (Negative) mg/dL Urine Blood Trace H (Negative) Urine Nitrite Negative (Negative) Ur Leukocyte Esterase Negative (Negative) Urine RBC 0-2 (0-2) /HPF Urine WBC 0-5 (0-5) /HPF Ur Squamous Epith Cells 0-2 (0-2) /HPF Urine Bacteria None Seen (None Seen) Hyaline Casts 0-2 (0-2) /LPF Independent Interpretation I performed an independent interpretation of an: EKG and CT Scan Interpretation: I independently reviewed EKG Vent. Rate : 63 BPM Atrial Rate : 63 BPM P-R Int : 144 ms QRS Dur : 78 ms QT Int : 414 ms P-R-T Axes : 37 17 10 degrees QTcB Int : 423 ms Normal sinus rhythm Junctional ST depression, probably normal Borderline ECG When compared with ECG of 17-Jul-2024 13:50, No significant change was found Radiology Impression Discussion of test interpretation with radiology: I have reviewed the radiologist's reading. Radiologist Impression: There is mild prominence of the central renal collecting systems bilaterally without jayesh hydronephrosis. Small nonobstructing calculi are seen in the lower pole of the left kidney. The rest of the solid organs are normal. The gallbladder is normal. No bowel obstruction, pneumoperitoneum, or pneumatosis. No evidence of diverticulitis or appendicitis. There is evidence of left pelvic congestion syndrome. The urinary bladder is normal. The bones are intact. IMPRESSION: 1. Left pelvic congestion syndrome. 2. Left-sided nephrolithiasis without obstructive uropathy. This document has been electronically signed by: Vimal Pham MD on 04/16/2025 11:43:18 Dictated By: Vimal Pham MD Signed By: <Electronically signed by Vimal Pham MD in [place]> 04/16/25 114 External Record Review External record reviewed: Inpatient record, Office record and Outpatient record Medications Administered Discontinued Medications Generic Name Dose Route Start Last Admin Trade Name Freq PRN Reason Stop Dose Admin Al Hydroxide/Mg Hydroxide 30 ml 04/16/25 08:45 04/16/25 08:57 Magnesium Hydrox/Alum Hydrox 30 Ml Oral.Susp PO 04/16/25 08:46 30 ml ONCE ONE Administration Famotidine 20 mg 04/16/25 08:45 04/16/25 08:57 Famotidine/Pf 20 Mg/2 Ml Vial IVPUSH 04/16/25 08:46 20 mg ONCE ONE Administration Lactated Ringer's 1,000 mls @ 999 mls/hr 04/16/25 08:45 04/16/25 09:59 Lr IV 04/16/25 09:45 Infused .Q1H1M ONE Infusion Iohexol 100 ml 04/16/25 10:34 04/16/25 10:34 Iohexol 350 Mg/Ml 100 Ml Infus..Btl IV 04/16/25 10:35 85 ml ONCE ONE Administration Lidocaine HCl 15 ml 04/16/25 08:45 04/16/25 08:57 Lidocaine Hcl Viscous 2 % 15 Ml Solution MUCOUS MEM 04/16/25 08:46 15 ml ONCE ONE Administration Ondansetron HCl 4 mg 04/16/25 08:45 04/16/25 09:00 Ondansetron Hcl 4 Mg/2 Ml Vial IVPUSH 04/16/25 08:46 4 mg ONCE ONE Administration Discharge Plan Discharge Clinical Impression: Female pelvic congestion syndrome, Left nephrolithiasis Patient Disposition: Home, Self-Care Instructions: Kidney Stones (ED) Additional Instructions: You were evaluated in the emergency department today due to abdominal pain, nausea, diarrhea, back pain. Your labs were unconcerning, your EKG did not show any emergent cardiac process. Your urine showed some microscopic blood, but was not concerning for infection. Your CT abdomen and pelvis showed that you have left-sided pelvic congestion syndrome, and left-sided kidney stones in the lower pole of your kidney, that are not obstructing any urine flow. You were medicated with IV fluids, 4 mg IV Zofran, a GI cocktail of Pepcid, Maalox, viscous lidocaine. You did not find these medications particularly helpful with your abdominal pain. You did state that you are on tirzepatide which can cause abdominal upset, and diarrhea as side effects. You should follow up as soon as possible with your OBGYN and your PCP with your findings on CT scan, and your abdominal pain and diarrhea that may be caused by your medication. I recommend that you stop taking loperamide at this time. You stated you take meloxicam and you can continue taking this medication as this may help with your left lower quadrant pain due to the pelvic congestion syndrome. Please return to the emergency department if you have worsening abdominal pain, inability to move your bowels, any blood in the stool or urine, worsening back pain, fevers over 100.4?, chest pain, shortness of breath, or any new/concerning/worsening symptoms Prescriptions: No Action cholecalciferol (vitamin D3) 25 mcg (1,000 unit) capsule 25 mcg PO DAILY lamotrigine 100 mg tablet 100 mg PO TID thyroid (pork) [[place] Thyroid] 90 mg tablet 60 mg PO DAILY Interventions: ED Discharge Assessment Last Done: 04/16/25 13:09 Discharge Date/Time: 04/16/25 13:09 Print Language: [place]
[2025-04-16 08:21] LABS: Alanine Aminotransferase 15 U/L (0-31); Albumin Level 4.3 g/dL (3.5-5.0); Alkaline Phosphatase 59 U/L (39-117); Anion Gap 9 (12-20); Aspartate Amino Transferase 19 U/L (5-31); Basophils Absolute Auto 0.1 X10*3/uL (0.0-0.2); Basophils Percent Auto 1.1 % (0-2); Bilirubin Direct 0.2 mg/dL (0.0-0.5); Bilirubin Total 0.5 mg/dL (0.0-1.0); Blood Urea Nitrogen 13 mg/dL (9-16); Calcium 9.5 mg/dL (8.4-10.2); Carbon Dioxide 29 mmol/L (22-29); Chloride 109 mmol/L (96-108); Eosinophils Absolute Auto 0.2 X10*3/uL (0.0-0.4); Eosinophils Percent Auto 3.9 % (0-4); Estimated Glomerular Filt Rate > 60; Glucose Random 101 mg/dL (60-115); Hemoglobin 13.2 g/dl (12.0-16.0); Imm Gran Abs Auto 0.01 X10*3/uL (0.00-0.03); Imm Gran Pct Auto 0.2 % (0.0-0.4); Lipase 25 U/L (8-78); Lymphocytes Absolute Auto 1.6 X10*3/uL (1.2-4.9); Lymphocytes Percent Auto 27.2 % (20-40); Mean Corpuscular HGB Conc 34.7 g/dl (31.0-35.0); Mean Corpuscular Hemoglobin 28.9 pg (27.0-33.0); Mean Corpuscular Volume 83.3 fL (80.0-98.0); Mean Platelet Volume 9.4 fL (9.4-12.3); Monocytes Absolute Auto 0.5 X10*3/uL (0.1-1.2); Monocytes Percent Auto 8.8 % (2-11); Neutrophils Absolute Auto 3.4 x10*3/uL (2.0-8.3); Neutrophils Percent Auto 58.8 % (45-73); Platelet Count 263 X10*3/uL (160-400); Potassium 4.3 mmol/L (3.3-5.1); Red Blood Count 4.56 X10*6/uL (4.20-5.50); Red Cell Distribution Width 13.7 % (11.0-16.0); Sodium 143 mmol/L (135-145); Total Protein 7.2 g/dL (6.5-8.0); White Blood Count 5.7 X10*3/uL (4.8-10.8)
--- NOTE | 2025-04-16 08:44 | ECG_ITS ---
Test Reason : EPIGATRIC PAIN Blood Pressure : */* mmHG Vent. Rate : 63 BPM Atrial Rate : 63 BPM P-R Int : 144 ms QRS Dur : 78 ms QT Int : 414 ms P-R-T Axes : 37 17 10 degrees QTcB Int : 423 ms Normal sinus rhythm Normal EKG When compared with ECG of 17-Jul-2024 13:50, No significant change was found Referred By: Shoshana Hernandez Electronically Signed By: FRITZ COWAN
[2025-04-16 08:48] LABS: Appearance Urine Clear; Color Urine Dark Yellow; Glucose Urine UA Negative (Negative); Leukocyte Esterase Urine Negative (Negative); Nitrite Urine Negative (Negative); PH 6.5 (5.0-9.0); UMIC TRIGGER UACC YES; Urine Blood Trace (Negative); Urine Ketones Negative (Negative); Urine Protein Negative (Neg-Trace)
[2025-04-16 08:53] LABS: Bacteria Urine None Seen (None Seen); Hyaline Casts Urine 0-2 /LPF (0-2); RBC Urine 0-2 /HPF (0-2); Squamous Epithelial Cell Urine 0-2 /HPF (0-2); WBC Urine 0-5 /HPF (0-5)
[2025-04-16] MEDS: Lactated Ringers 1,000 ML 999 ML IV (08:56)
[2025-04-16] MEDS: Lidocaine HCl Viscous 2 % 15 ML SOLUTION MUCOUS MEM (08:57)
[2025-04-16] MEDS: Magnesium Hydrox/Alum Hydrox 30 ML ORAL.SUSP PO (08:57)
[2025-04-16] MEDS: Famotidine/PF 20 MG/2 ML VIAL IVPUSH (08:57)
[2025-04-16] MEDS: ondansetron HCL 4 MG/2 ML VIAL IVPUSH (09:00)
--- NOTE | 2025-04-16 09:08 | PC.NURSE ---
IVF/medication administered per provider order. effectiveness pending.
[2025-04-16 10:15] LABS: Troponin-I High Sensitivity < 2.7 ng/L (<3.5-17.0)
[2025-04-16] MEDS: iohexoL 350 MG/ML 100 ML INFUS..BTL IV (10:34)
[2025-04-16 10:40] LABS: Thyroid Stimulating Hormone 3.94 uIU/mL (0.32-4.0)
--- NOTE | 2025-04-16 11:13 | PC.NURSE ---
Abdomen/pelvic CT completed awaiting results. Patient pain rated 4/10, patient states My pain is alittle better .
== END 2025-04-16 13:09 | disposition home or self-care (01) ==
PROVIDERS: Emergency Provider Emergency Medicine; PCP Nurse Practitioner Family
DX: N94.89 Other specified conditions associated with female genital organs and menstrual cycle (principal); R10.9 Unspecified abdominal pain; R19.7 Diarrhea, unspecified; N20.0 Calculus of kidney
CPT/HCPCS: 36415; 74177; 80048; 80076; 81001; 83690; 83735; 84443; 84484; 85025; 93005; 96361; 96374; 96375; 99284; 99285; J1308; J2405; J7120; Q9967

== ENCOUNTER → 2025-04-16 08:44 | Outpatient (BNV) | payer OTHER, SELFPAY | PROVIDERS: Emergency Provider Emergency Medicine; PCP Nurse Practitioner Family; Visit Provider Internal Medicine | DX: R10.13 Epigastric pain (principal) | CPT/HCPCS: 93010 ==

== ENCOUNTER → 2025-04-16 09:50 | Outpatient (BNV) | payer OTHER, SELFPAY | PROVIDERS: Emergency Provider Emergency Medicine; PCP Nurse Practitioner Family; Visit Provider Radiology Diagnostic Radiology | DX: N20.0 Calculus of kidney (principal) | CPT/HCPCS: 74177 ==